=== PATIENT | male | born 1985 | race American Indian/Alaskan Native ===

== ENCOUNTER 2020-12-30 00:22 | Emergency (ER) | payer SELFPAY ==
[2020-12-30] MEDS ORDERED: levETIRAcetam 1000 MG/NS 0.75% 1,000 MG/100 ML BAG IV ONE (00:32)
[2020-12-30] MEDS ORDERED: SODIUM CHLORIDE 0.9% 1000 ML 1,000 ML IV ONE (00:32)
--- NOTE | 2020-12-30 00:35 | Emergency Department Report ---
ED Seizure HPI - General Chief Complaint: Seizure Stated Complaint: SEIZURE Time Seen by Provider: 12/30/20 00:22 Source: patient, EMS Mode of arrival: Stretcher Limitations: No Limitations - History of Present Illness Initial Comments: Patient is a 35-year-old male that presents emergency room with complaints of seizure activity. Patient states that he has history of seizures and is noncompliant with his medications. He states he ran out of medications about 2 weeks ago. Patient states that he is having some muscle stiffness and a headache. Patient states his headache is a 3 out of 10. Patient states his headache is better with rest and worse with movement. Patient denies fever and chills. Patient denies nausea vomiting. Patient denies cough. Patient denies chest pain. Patient denies shoulder injury. Patient denies recent travel. Patient denies recent international travel. Patient denies exposure to the novel coronavirus. Patient denies sick contacts. Patient denies fever and chills. Patient denies cough. Patient denies diarrhea. Patient denies coming in contact with anybody with symptoms of the novel coronavirus. MD Complaint: seizure -: Sudden Description of Episode: loss of consciousness, tonic-clonic movement -: second(s) Witnessed:: Yes Trauma: No Seizure History: known seizure disorder, history of non-compliance Place: home Possible Precipitating Event: stress, medication Associated Symptoms: confusion, malaise. denies: chest pain, cough, diaphoresis, fever/chills, loss of appetite, rash, shortness of breath, syncope, weakness, tongue injury, shoulder dislocation Treatments Prior to Arrival: none - Related Data Home Medications Medication Instructions Recorded Confirmed Last Taken Meloxicam 07/17/18 Unknown traMADol 07/17/18 Unknown Previous Rx's Medication Instructions Recorded Last Taken Type Aspirin EC [Ecotrin] 325 mg PO QDAY #30 tablet 07/20/18 Unknown Rx AtorvaSTATin [Lipitor] 40 mg PO DAILY #30 tablet 07/20/18 Unknown Rx levETIRAcetam [Keppra] 500 mg PO BID #60 tablet 07/20/18 Unknown Rx levETIRAcetam [Keppra TAB] 500 mg PO BID 15 Days #30 tablet 12/30/20 Unknown Rx methOCARBAMOL [Robaxin TAB] 500 mg PO BID PRN #15 12/30/20 Unknown Rx Allergies Allergy/AdvReac Type Severity Reaction Status Date / Time No Known Allergies Allergy Unverified 07/17/18 02:50 ED Review of Systems ROS: Stated complaint: SEIZURE Other details as noted in HPI Constitutional: denies: chills, fever Eyes: denies: eye pain, eye discharge, vision change ENT: denies: ear pain, throat pain Respiratory: denies: cough, shortness of breath, wheezing Cardiovascular: denies: chest pain, palpitations Endocrine: no symptoms reported Gastrointestinal: denies: abdominal pain, nausea, diarrhea Genitourinary: denies: urgency, dysuria Musculoskeletal: denies: back pain, joint swelling, arthralgia Skin: denies: rash, lesions Neurological: as per HPI, headache. denies: weakness, paresthesias Psychiatric: denies: anxiety, depression, auditory hallucinations, visual nela lucinations, homicidal thoughts, suicidal thoughts Hematological/Lymphatic: denies: easy bleeding, easy bruising ED Past Medical Hx - Past Medical History Previous Medical History?: Yes Hx Congestive Heart Failure: No Hx Diabetes: No Hx Seizures: Yes Hx Asthma: No Hx COPD: No - Surgical History Past Surgical History?: No - Family History Family history: no significant - Social History Smoking Status: Current Every Day Smoker Substance Use Type: None - Medications Home Medications: Home Medications Medication Instructions Recorded Confirmed Last Taken Type Meloxicam 07/17/18 Unknown History traMADol 07/17/18 Unknown History Aspirin EC [Ecotrin] 325 mg PO QDAY #30 tablet 07/20/18 12/30/20 Unknown Rx AtorvaSTATin [Lipitor] 40 mg PO DAILY #30 tablet 07/20/18 12/30/20 Unknown Rx levETIRAcetam [Keppra] 500 mg PO BID #60 tablet 07/20/18 12/30/20 Unknown Rx levETIRAcetam [Keppra TAB] 500 mg PO BID 15 Days #30 tablet 12/30/20 Unknown Rx methOCARBAMOL [Robaxin TAB] 500 mg PO BID PRN #15 12/30/20 Unknown Rx ED Physical Exam - General Limitations: No Limitations General appearance: alert, in no apparent distress - Head Head exam: Present: atraumatic, normocephalic - Eye Eye exam: Present: normal appearance, PERRL Pupils: Present: normal accommodation - ENT ENT exam: Present: mucous membranes dry - Neck Neck exam: Present: normal inspection - Respiratory Respiratory exam: Present: normal lung sounds bilaterally. Absent: respiratory distress - Cardiovascular Cardiovascular Exam: Present: regular rate, normal rhythm. Absent: systolic murmur, diastolic murmur, rubs, gallop - GI/Abdominal GI/Abdominal exam: Present: soft, normal bowel sounds - Rectal Rectal exam: Present: deferred - Extremities Exam Extremities exam: Present: normal inspection - Back Exam Back exam: Present: normal inspection - Neurological Exam Neurological exam: Present: alert, oriented X3 - Psychiatric Psychiatric exam: Present: normal affect, normal mood - Skin Skin exam: Present: warm, dry, intact, normal color. Absent: rash ED Course Vital Signs 12/30/20 00:29 Temperature 97.7 F Pulse Rate 66 Respiratory 13 Rate Blood Pressure 109/64 [right arm] O2 Sat by Pulse 95 Oximetry - Reevaluation(s) Reevaluation #1: No further seizure activity in the ER. Patient states he is feeling better. Patient will be given a refill of his medication. Patient is on Keppra. Patient given IV Keppra in the ER. I discussed all results and clinical findings with patient. I discussed plan of care with patient. Patient agrees with plan of care. Patient is stable for discharge. Patient will be discharged home. Patient given discharge instructions. Patient voiced understanding of discharge instructions. 12/30/20 02:53 ED Medical Decision Making - Lab Data Result diagrams: 12/30/20 00:55 12/30/20 00:55 - Radiology Data Radiology results: report reviewed CT HEAD WITHOUT CONTRAST INDICATION / CLINICAL INFORMATION: Seizure, dykes. TECHNIQUE: All CT scans at this location are performed using CT dose reduction for ALARA by means of automated exposure control. COMPARISON: CT scan report dated 07/17/2018. Images are not available for direct comparison. FINDINGS: HEMORRHAGE: None. EXTRA-AXIAL SPACES: Normal in size and morphology for the patient's age. VENTRICULAR SYSTEM: Normal in size and morphology for the patient's age. CEREBRAL PARENCHYMA: No significant abnormality. No acute territorial infarct. MIDLINE SHIFT / HERNIATION: None. CEREBELLUM / BRAINSTEM: No significant abnormality. ORBITS: Normal as visualized. SOFT TISSUES: No significant abnormality. SKULL: No significant abnormality. PARANASAL SINUSES / MASTOID AIR CELLS: Normal as visualized. ADDITIONAL FINDINGS: None. IMPRESSION: 1. No acute intracranial abnormality. - Medical Decision Making Patient is a 35-year-old male presents emergency room with complaints of seizure activity secondary to noncompliance. Patient also complained of a headache. Patient denies head injury. Patient had a head CT which was negative for acute finding. Patient had labs which were unremarkable. Patient chemistry and CBC were normal. Patient given IV fluids and Keppra in the ER. Patient was given a refill of his Keppra. Patient stable for discharge. Patient was discharged home. Patient given discharge instructions. No further seizure activity was noted. Patient's headache improved with fluids. - Differential Diagnosis Seizure, noncompliance, head injury, headache Critical care attestation.: If time is entered above; I have spent that time in minutes in the direct care of this critically ill patient, excluding procedure time. ED Disposition Clinical Impression: Seizure, Noncompliance Disposition: DC-01 TO HOME OR SELFCARE Is pt being admited?: No Does the pt Need Aspirin: No Condition: Stable Instructions: Epilepsy, [id number] Additional Instructions: Patient to follow-up with primary care in 2 to 3 days. Patient to follow-up with neurologist in 2 to 3 days. Patient to rest. Patient to increase water. Patient to avoid strenuous exercise or heavy lifting until cleared by neurologist and primary care. Patient to avoid driving. Patient to avoid high areas. Patient to take Tylenol or ibuprofen as needed for pain. Patient to ta ke meds as directed. Patient to return to the ER if condition worsens, changes or new symptoms arise. Prescriptions: levETIRAcetam [Keppra TAB] 500 mg PO BID 15 Days #30 tablet methOCARBAMOL [Robaxin TAB] 500 mg PO BID PRN #15 PRN Reason: muscle spasm Referrals: PRIMARY JANA, [Primary Care Provider] - 2-3 Days KUSUM HELLER MD [Staff Physician] - 2-3 Days Time of Disposition: 02:53
[2020-12-30 01:20] LABS: Basophils % (Auto) 0.5 % (0.0-1.8); Eosinophils % (Auto) 0.5 % (0.0-4.3); Hematocrit 40.7 % (35.5-45.6); Hemoglobin 13.6 gm/dl (11.8-15.2); Lymphocytes % (Auto) 37.7 % (13.4-35.0); Mean Corpuscular HGB Conc 33 % (32-34); Mean Corpuscular Volume 93 fl (84-94); Monocytes # (Auto) 0.5 K/mm3 (0.0-0.8); Platelet Count 295 K/mm3 (140-440); Red Blood Count 4.38 M/mm3 (3.65-5.03); Red Cell Distribution Width 14.2 % (13.2-15.2)
[2020-12-30 01:39] LABS: Alanine Aminotransferase 12 units/L (7-56); Albumin 4.1 g/dL (3.9-5); BUN/Creatinine Ratio 8; Blood Urea Nitrogen 10 mg/dL (9-20); Hemolysis Index 3
--- NOTE | 2020-12-30 02:04 | Cat Scan Report ---
CT HEAD WITHOUT CONTRAST INDICATION / CLINICAL INFORMATION: Seizure, dykes. TECHNIQUE: All CT scans at this location are performed using CT dose reduction for ALARA by means of automated exposure control. COMPARISON: CT scan report dated 07/17/2018. Images are not available for direct comparison. FINDINGS: HEMORRHAGE: None. EXTRA-AXIAL SPACES: Normal in size and morphology for the patient's age. VENTRICULAR SYSTEM: Normal in size and morphology for the patient's age. CEREBRAL PARENCHYMA: No significant abnormality. No acute territorial infarct. MIDLINE SHIFT / HERNIATION: None. CEREBELLUM / BRAINSTEM: No significant abnormality. ORBITS: Normal as visualized. SOFT TISSUES: No significant abnormality. SKULL: No significant abnormality. PARANASAL SINUSES / MASTOID AIR CELLS: Normal as visualized. ADDITIONAL FINDINGS: None. IMPRESSION: 1. No acute intracranial abnormality. Signer Name: Paul Mariee MD Signed: 12/30/2020 2:00 AM Workstation Name: [id number]
[2020-12-30 03:11] VITALS: BP 100/54
[2020-12-30] MEDS ORDERED: KETOROLAC 30 MG/1 ML INJ IV ONE (03:13)
[2021-01-01] MEDS ORDERED: LIDOCAINE (1%) 10 MG/1 ML VIAL 20 ML MDV ONE (15:42)
== END 2020-12-30 03:37 | disposition home or self-care (01) ==
LOC: ED 00:22
DX: G40.909 Epilepsy, unspecified, not intractable, without status epilepticus (principal); F17.200 Nicotine dependence, unspecified, uncomplicated; Z79.899 Other long term (current) drug therapy
CPT/HCPCS: 36415; 70450; 80053; 85025; 96374; 96375; 99284; J1885; J1953; J7030

== ENCOUNTER 2021-01-20 01:00 | Emergency (ER) | payer SELFPAY ==
[2021-01-20] MEDS ORDERED: ASPIRIN 325 MG TAB PO ONE (03:48)
--- NOTE | 2021-01-20 03:51 | Event Note ---
ED Screening Note Date of service: 01/20/21 Time: 03:49 ED Screening Note: Patient is a 35-year-old -[place] male with a history of seizures, chronic low back pain with sciatica, GERD and previous TIA who presents to the ED with complaint of acute onset persistent severe left-sided chest pain for the last 2 days worse in the last 12 hours. Patient states that he has not been able to sleep because of worsening left-sided chest pain. Patient also complains of low back pain that radiates to the left leg. Patient denies dizziness, syncope, headache, change in vision, nausea and vomiting, abdominal pain, fever, chills, palpitations, diaphoresis, traumatic injury or fall, heavy lifting, neck pain or cough. This initial assessment/diagnostic orders/clinical plan/treatment(s) is/are subject to change based on patients health status, clinical progression and re- assessment by fellow clinical providers in the ED. Further treatment and workup at subsequent clinical providers discretion. Patient/guardian urged not to elope from the ED as their condition may be serious if not clinically assessed and managed. Initial orders include: CBC, CMP, troponin, EKG, chest x-ray, aspirin
--- NOTE | 2021-01-20 04:29 | XRay Report ---
CHEST 1 VIEW 01/20/2021 3:17 AM INDICATION / CLINICAL INFORMATION: Chest pain. COMPARISON: None available. FINDINGS: SUPPORT DEVICES: None. HEART / MEDIASTINUM: The heart size and pulmonary vasculature are normal. The aorta is normal in pavel bert. LUNGS / PLEURA: No significant pulmonary or pleural abnormality. No pneumothorax. ADDITIONAL FINDINGS: No significant additional findings. IMPRESSION: No acute findings. Signer Name: Placido Morgan MD Signed: 01/20/2021 4:25 AM Workstation Name: [id number]
[2021-01-20 04:43] LABS: Basophils % (Auto) 0.3 % (0.0-1.8); Eosinophils # (Auto) 0.1 K/mm3 (0.0-0.4); Eosinophils % (Auto) 0.8 % (0.0-4.3); Hemoglobin 14.1 gm/dl (11.8-15.2); Lymphocytes # (Auto) 2.9 K/mm3 (1.2-5.4); Mean Corpuscular HGB Conc 34 % (32-34); Mean Corpuscular Volume 94 fl (84-94); Monocytes # (Auto) 0.6 K/mm3 (0.0-0.8); Monocytes % (Auto) 7.1 % (0.0-7.3); Platelet Count 316 K/mm3 (140-440); Red Blood Count 4.49 M/mm3 (3.65-5.03); Red Cell Distribution Width 14.3 % (13.2-15.2)
[2021-01-20 04:59] LABS: Alanine Aminotransferase 15 units/L (7-56); Albumin 4.1 g/dL (3.9-5); BUN/Creatinine Ratio 11; Blood Urea Nitrogen 12 mg/dL (9-20); Calcium 8.9 mg/dL (8.4-10.2); Hemolysis Index 4
[2021-01-20] MEDS ORDERED: KETOROLAC 60 MG/2 ML INJ IM ONE (07:42)
--- NOTE | 2021-01-20 07:46 | Emergency Department Report ---
ED General Adult HPI - General Chief complaint: Weakness Stated complaint: LEFT SIDED WEAKNESS; SORE THROAT Time Seen by Provider: 01/20/21 07:26 Source: patient Mode of arrival: Ambulatory Limitations: No Limitations - History of Present Illness Initial comments: Mr. Anderson is a 35 years old male with history of seizure, chronic back pain and sciatica. Patient presented to the ER with different complaint. Patient stated that he is having back pain that radiated down to his leg. He also stated that he has neck pain. Patient also complaining of generalized weakness and feeling sleepy all the time. Patient denied any recent injury. Patient denied any recent history of seizure. Patient is taking Keppra. - Related Data Home Medications Medication Instructions Recorded Confirmed Last Taken Meloxicam 07/17/18 Unknown traMADol 07/17/18 Unknown Previous Rx's Medication Instructions Recorded Last Taken Type Aspirin EC [Ecotrin] 325 mg PO QDAY #30 tablet 07/20/18 Unknown Rx AtorvaSTATin [Lipitor] 40 mg PO DAILY #30 tablet 07/20/18 Unknown Rx levETIRAcetam [Keppra] 500 mg PO BID #60 tablet 07/20/18 Unknown Rx levETIRAcetam [Keppra TAB] 500 mg PO BID 15 Days #30 tablet 12/30/20 Unknown Rx methOCARBAMOL [Robaxin TAB] 500 mg PO BID PRN #15 12/30/20 Unknown Rx Allergies Allergy/AdvReac Type Severity Reaction Status Date / Time No Known Allergies Allergy Unverified 07/17/18 02:50 ED Review of Systems ROS: Stated complaint: LEFT SIDED WEAKNESS; SORE THROAT Other details as noted in HPI Comment: All other systems reviewed and negative Constitutional: denies: chills, fever Respiratory: denies: cough, shortness of breath, SOB with exertion Cardiovascular: chest pain. denies: palpitations, dyspnea on exertion Gastrointestinal: denies: abdominal pain, nausea Musculoskeletal: back pain, arthralgia, myalgia Neurological: weakness. denies: headache, numbness, paresthesias, confusion, abnormal gait ED Past Medical Hx - Past Medical History Previous Medical History?: Yes Hx Congestive Heart Failure: No Hx Diabetes: No Hx Seizures: Yes Hx Asthma: No Hx COPD: No - Surgical History Past Surgical History?: No - Social History Smoking Status: Current Every Day Smoker Substance Use Type: Alcohol - Medications Home Medications: Home Medications Medication Instructions Recorded Confirmed Last Taken Type Meloxicam 07/17/18 Unknown History traMADol 07/17/18 Unknown History Aspirin EC [Ecotrin] 325 mg PO QDAY #30 tablet 07/20/18 12/30/20 Unknown Rx AtorvaSTATin [Lipitor] 40 mg PO DAILY #30 tablet 07/20/18 12/30/20 Unknown Rx levETIRAcetam [Keppra] 500 mg PO BID #60 tablet 07/20/18 12/30/20 Unknown Rx levETIRAcetam [Keppra TAB] 500 mg PO BID 15 Days #30 tablet 12/30/20 Unknown Rx methOCARBAMOL [Robaxin TAB] 500 mg PO BID PRN #15 12/30/20 Unknown Rx ED Physical Exam - General Limitations: No Limitations General appearance: alert, in no apparent distress - Head Head exam: Present: atraumatic, normocephalic, normal inspection - Eye Eye exam: Present: normal appearance, PERRL - ENT ENT exam: Present: normal exam, normal orophraynx, mucous membranes moist - Neck Neck exam: Present: normal inspection, full ROM. Absent: tenderness, meningismus - Respiratory Respiratory exam: Present: normal lung sounds bilaterally - Cardiovascular Cardiovascular Exam: Present: regular rate, normal rhythm, normal heart sounds - GI/Abdominal GI/Abdominal exam: Present: soft, normal bowel sounds. Absent: distended, tenderness, guarding, rebound, rigid, organomegaly, mass, bruit, pulsatile mass, hernia - Extremities Exam Extremities exam: Present: normal inspection, full ROM, normal capillary refill. Absent: tenderness - Back Exam Back exam: Present: normal inspection, full ROM. Absent: tenderness, CVA tenderness (R), CVA tenderness (L) - Neurological Exam Neurological exam: Present: alert, oriented X3, CN II-XII intact - Psychiatric Psychiatric exam: Present: normal mood - Skin Skin exam: Present: warm, intact, normal color ED Course Vital Signs 01/20/21 01/20/21 01/20/21 02:01 07:33 07:47 Temperature 98.8 F Pulse Rate 75 54 L Respiratory 16 16 16 Rate Blood Pressure 107/76 123/79 [Left] O2 Sat by Pulse 97 99 Oximetry ED Medical Decision Making - Lab Data Result diagrams: 01/20/21 04:11 01/20/21 04:11 - Radiology Data Radiology results: report reviewed - Medical Decision Making Mr. Anderson is a 35 years old male with history of seizure, chronic back pain and sciatica. Patient presented to the ER with different complaint. Patient stated that he is having back pain that radiated down to his leg. He also stated that he has neck pain. Patient also complaining of generalized weakness and feeling sleepy all the time. Patient denied any recent injury. Patient denied any recent history of seizure. Patient is taking Keppra. Labs reviewed and is unremarkable except for UTI. Chest x-ray is negative for acute finding. Patient received Toradol 60 mg IM for pain and stated that it helped a lot. Patient generalized weakness and sleepiness is most likely from his Keppra side effect however patient strongly advised to follow-up with his primary care physician for further management. Patient given prescription for ciprofloxacin. Patient advised to return to the ER if he develop any new symptoms. Critical care attestation.: If time is entered above; I have spent that time in minutes in the direct care o f this critically ill patient, excluding procedure time. ED Disposition Clinical Impression: Generalized weakness, UTI (urinary tract infection) Disposition: - TO HOME OR SELFCARE Is pt being admited?: No Condition: Stable Instructions: Urinary Tract Infection, Adult, [id number], Weakness Referrals: PRIMARY CARE,MD [Primary Care Provider] - 3-5 Days
[2021-01-20 08:31] LABS: Bilirubin,Urine NEG (Negative); Blood,Urine NEG (Negative); Color,Urine Yellow (Yellow); Mucus,Urine FEW /HPF; Protein,Urine <15 mg/dL mg/dL (Negative); Urobilinogen,Urine < 2.0 mg/dL (<2.0)
[2021-01-20 10:07] VITALS: BP 101/74
--- NOTE | 2021-01-21 10:39 | Electrocardiograph Report ---
[facility] Test Date: 2021-01-20 Test Time: 03:51:14 Pat Name: LUZ MARIA ALMEIDA Department: Room: Gender: M Office Mail Clerk: RAY : 1985 Requested By: JEAN PATRICIA Order Number: [id number] Reading MD: Renzo Finn Measurements Intervals [place] Rate: 57 P: 82 LA: 165 QRS: 80 QRSD: 82 T: 73 QT: 451 QTc: 441 Interpretive Statements Sinus bradycardia Probable left atrial enlargement Nonspecific T abnrm, anterolateral leads ST elev, probable normal early repol pattern No previous ECG available for comparison Electronically Signed On 01-21-2021 10:39:27 EDT by Renzo Finn
== END 2021-01-20 10:08 | disposition home or self-care (01) ==
LOC: ED 01:00
DX: N39.0 Urinary tract infection, site not specified (principal); R53.1 Weakness; G40.909 Epilepsy, unspecified, not intractable, without status epilepticus; F17.200 Nicotine dependence, unspecified, uncomplicated; Z79.82 Long term (current) use of aspirin; Z79.899 Other long term (current) drug therapy
CPT/HCPCS: 36415; 71045; 80053; 81001; 84484; 85025; 87086; 93005; 96372; 99284; J1885

== ENCOUNTER 2021-06-07 17:15 | Emergency (ER) | payer SELFPAY ==
--- NOTE | 2021-06-07 17:19 | Emergency Department Report ---
ED General Adult HPI - General Stated complaint: HEADACHE Time Seen by Provider: 06/07/21 17:16 - History of Present Illness Initial comments: Chief complaint: I just want to get checked out. HPI: This is a 35-year-old male history of seizure TIA who presents with generalized malaise. He states that he goes to different hospitals in order to get checked out because there he has a history of stroke in the family. He admitted to drinking alcohol and smoked marijuana prior to arrival. He denies any pain. He denies suicidal homicidal ideation. -: Gradual, days(s) (Several days) Consistency: constant Improves with: none Worsens with: none Associated Symptoms: other (Generalized malaise) - Related Data Home Medications Medication Instructions Recorded Confirmed Last Taken Meloxicam 07/17/18 Unknown traMADol 07/17/18 Unknown Previous Rx's Medication Instructions Recorded Last Taken Type Aspirin EC [Ecotrin] 325 mg PO QDAY #30 tablet 07/20/18 Unknown Rx AtorvaSTATin [Lipitor] 40 mg PO DAILY #30 tablet 07/20/18 Unknown Rx levETIRAcetam [Keppra] 500 mg PO BID #60 tablet 07/20/18 Unknown Rx levETIRAcetam [Keppra TAB] 500 mg PO BID 15 Days #30 tablet 12/30/20 Unknown Rx methOCARBAMOL [Robaxin TAB] 500 mg PO BID PRN #15 12/30/20 Unknown Rx Ciprofloxacin HCl 500 mg PO BID 10 Days #20 tablet 01/20/21 Unknown Rx Ketorolac [Toradol] 10 mg PO Q6H PRN #20 tablet 01/20/21 Unknown Rx Allergies Allergy/AdvReac Type Severity Reaction Status Date / Time No Known Allergies Allergy Unverified 07/17/18 02:50 ED Review of Systems ROS: Stated complaint: HEADACHE Other details as noted in HPI Comment: All other systems reviewed and negative Constitutional: malaise. denies: fever Respiratory: denies: cough, shortness of breath Cardiovascular: denies: chest pain Gastrointestinal: denies: abdominal pain, nausea, vomiting Neurological: denies: headache ED Past Medical Hx - Past Medical History Previous Medical History?: Yes Hx Congestive Heart Failure: No Hx Diabetes: No Hx Seizures: Yes Hx Asthma: No Hx COPD: No Additional medical history: TIA - Family History Family history: hypertension, vascular disease - Social History Smoking Status: Current Every Day Smoker Substance Use Type: Alcohol, Marijuana - Medications Home Medications: Home Medications Medication Instructions Recorded Confirmed Last Taken Type Meloxicam 07/17/18 Unknown History traMADol 07/17/18 Unknown History Aspirin EC [Ecotrin] 325 mg PO QDAY #30 tablet 07/20/18 12/30/20 Unknown Rx AtorvaSTATin [Lipitor] 40 mg PO DAILY #30 tablet 07/20/18 12/30/20 Unknown Rx levETIRAcetam [Keppra] 500 mg PO BID #60 tablet 07/20/18 12/30/20 Unknown Rx levETIRAcetam [Keppra TAB] 500 mg PO BID 15 Days #30 tablet 12/30/20 Unknown Rx methOCARBAMOL [Robaxin TAB] 500 mg PO BID PRN #15 12/30/20 Unknown Rx Ciprofloxacin HCl 500 mg PO BID 10 Days #20 tablet 01/20/21 Unknown Rx Ketorolac [Toradol] 10 mg PO Q6H PRN #20 tablet 01/20/21 Unknown Rx ED Physical Exam - General Limitations: No Limitations General appearance: alert, in no apparent distress - Head Head exam: Present: atraumatic, normocephalic - Eye Eye exam: Present: normal appearance - ENT ENT exam: Present: mucous membranes moist - Neck Neck exam: Present: normal inspection, full ROM - Respiratory Respiratory exam: Present: normal lung sounds bilaterally. Absent: respiratory distress, wheezes, rales, rhonchi - Cardiovascular Cardiovascular Exam: Present: regular rate, normal rhythm, normal heart sounds. Absent: systolic murmur, diastolic murmur, rubs, gallop - GI/Abdominal GI/Abdominal exam: Present: soft, normal bowel sounds - Rectal Rectal exam: Present: deferred - Extremities Exam Extremities exam: Present: normal inspection - Back Exam Back exam: Present: normal inspection - Neurological Exam Neurological exam: Present: alert, oriented X3 - Psychiatric Psychiatric exam: Present: normal affect, normal mood - Skin Skin exam: Present: warm, dry, intact, normal color. Absent: rash ED Medical Decision Making - Medical Decision Making Generalized malaise: Differential diagnosis includes intoxication alcohol marijuana, viral syndrome. Patient is awake alert steady normal gait. Stable vital signs. Discharged home. Critical care attestation.: If time is entered above; I have spent that time in minutes in the direct care of this critically ill patient, excluding procedure time. ED Disposition Clinical Impression: Seizure disorder, History of TIA (transient ischemic attack) Disposition: HOME / SELF CARE / HOMELESS Is pt being admited?: No Does the pt Need Aspirin: No Condition: Stable Referrals: REINIER MENDOZA MD [Staff Physician] - 3-5 Days
[2021-06-07 17:24] VITALS: BP 118/71
== END 2021-06-07 18:16 | disposition home or self-care (01) ==
LOC: ED 17:15
DX: G40.909 Epilepsy, unspecified, not intractable, without status epilepticus (principal); F17.200 Nicotine dependence, unspecified, uncomplicated; F12.90 Cannabis use, unspecified, uncomplicated; Z86.73 Personal history of transient ischemic attack (TIA), and cerebral infarction without residual deficits; Z79.899 Other long term (current) drug therapy; Z86.69 Personal history of other diseases of the nervous system and sense organs
CPT/HCPCS: 99281

== ENCOUNTER 2021-08-30 04:05 | Emergency (ER) | payer SELFPAY ==
[2021-08-30 05:12] VITALS: BP 109/54
--- NOTE | 2021-08-30 09:55 | Emergency Department Report ---
ED General Adult HPI - General Chief complaint: Extremity Problem,Nontraumatic Stated complaint: BACK PAIN & SWOLLEN FEET Time Seen by Provider: 08/30/21 09:15 Source: patient Mode of arrival: Ambulatory Limitations: No Limitations - History of Present Illness Initial comments: 36-year-old male with a past medical history of TIA, GERD and seizures presents to the ER today with complaints of lower back pain, and swelling about his ankles. Patient states that he has been having the low back pain since yesterday and he is also been having swelling about his ankle since yesterday. He denies any particular injury or trauma. He states that he does do lots of standing and walking at work. He reports increased pain with movement of his back. He denies any associate abdominal pain, UTI symptoms, bowel or bladder incontinence, chest pain or shortness of breath. MD Complaint: low back pain/ankle swelling -: days(s) Severity scale (0 -10): 9 - Related Data Home Medications Medication Instructions Recorded Confirmed Last Taken Meloxicam 07/17/18 Unknown traMADol 07/17/18 Unknown Previous Rx's Medication Instructions Recorded Last Taken Type Aspirin EC [Ecotrin] 325 mg PO QDAY #30 tablet 07/20/18 Unknown Rx AtorvaSTATin [Lipitor] 40 mg PO DAILY #30 tablet 07/20/18 Unknown Rx levETIRAcetam [Keppra] 500 mg PO BID #60 tablet 07/20/18 Unknown Rx levETIRAcetam [Keppra TAB] 500 mg PO BID 15 Days #30 tablet 12/30/20 Unknown Rx Ciprofloxacin HCl 500 mg PO BID 10 Days #20 tablet 01/20/21 Unknown Rx Ketorolac [Toradol] 10 mg PO Q6H PRN #20 tablet 01/20/21 Unknown Rx Naproxen [Naprosyn] 500 mg PO BID #20 tablet 08/30/21 Unknown Rx methOCARBAMOL [Robaxin TAB] 500 mg PO BID PRN #15 08/30/21 Unknown Rx Allergies Allergy/AdvReac Type Severity Reaction Status Date / Time No Known Allergies Allergy Verified 06/07/21 17:24 ED Review of Systems ROS: Stated complaint: BACK PAIN & SWOLLEN FEET Other details as noted in HPI Comment: All other systems reviewed and negative Constitutional: denies: chills, fever Eyes: denies: eye pain, eye discharge, vision change ENT: denies: ear pain, throat pain Respiratory: denies: cough, shortness of breath, wheezing Cardiovascular: denies: chest pain, palpitations Gastrointestinal: denies: abdominal pain, nausea, diarrhea, constipation, hematemesis, melena, hematochezia Genitourinary: denies: urgency, dysuria, frequency, hematuria, discharge, testicular pain, testicular mass Musculoskeletal: back pain, joint swelling Skin: denies: rash, lesions, change in color, change in hair/nails, pruritus Neurological: denies: headache, weakness, paresthesias, confusion ED Past Medical Hx - Past Medical History Hx Congestive Heart Failure: No Hx Diabetes: No Hx Seizures: Yes Hx Asthma: No Hx COPD: No Additional medical history: TIA - Social History Smoking Status: Current Every Day Smoker Substance Use Type: Marijuana - Medications Home Medications: Home Medications Medication Instructions Recorded Confirmed Last Taken Type Meloxicam 07/17/18 Unknown History traMADol 07/17/18 Unknown History Aspirin EC [Ecotrin] 325 mg PO QDAY #30 tablet 07/20/18 12/30/20 Unknown Rx AtorvaSTATin [Lipitor] 40 mg PO DAILY #30 tablet 07/20/18 12/30/20 Unknown Rx levETIRAcetam [Keppra] 500 mg PO BID #60 tablet 07/20/18 12/30/20 Unknown Rx levETIRAcetam [Keppra TAB] 500 mg PO BID 15 Days #30 tablet 12/30/20 Unknown Rx Ciprofloxacin HCl 500 mg PO BID 10 Days #20 tablet 01/20/21 Unknown Rx Ketorolac [Toradol] 10 mg PO Q6H PRN #20 tablet 01/20/21 Unknown Rx Naproxen [Naprosyn] 500 mg PO BID #20 tablet 08/30/21 Unknown Rx methOCARBAMOL [Robaxin TAB] 500 mg PO BID PRN #15 08/30/21 Unknown Rx ED Physical Exam - General Limitations: No Limitations General appearance: alert, other (Patient was found to be sleeping comfortably in the room. He was easily arousable. He is not in any acute distress.) - Eye Eye exam: Present: normal appearance, PERRL, EOMI Pupils: Present: normal accommodation - Neck Neck exam: Present: normal inspection, full ROM. Absent: meningismus - Respiratory Respiratory exam: Present: normal lung sounds bilaterally. Absent: respiratory distress, wheezes, rales, rhonchi - Cardiovascular Cardiovascular Exam: Present: regular rate, normal rhythm, normal heart sounds - GI/Abdominal GI/Abdominal exam: Present: soft. Absent: distended, tenderness, guarding - Extremities Exam Extremities exam: Present: normal inspection, full ROM. Absent: tenderness, normal capillary refill, pedal edema, joint swelling, calf tenderness - Back Exam Back exam: Present: normal inspection, full ROM, paraspinal tenderness (Mild, bilateral paraspinal muscle tenderness lumbar area). Absent: CVA tenderness (R), CVA tenderness (L), vertebral tenderness, rash noted - Neurological Exam Neurological exam: Present: alert, oriented X3, CN II-XII intact, normal gait - Psychiatric Psychiatric exam: Present: normal affect, normal mood - Skin Skin exam: Present: intact ED Course Vital Signs 08/30/21 08/30/21 05:11 10:14 Temperature 98.1 F Pulse Rate 68 67 Respiratory 20 Rate Blood Pressure 109/54 [Left] O2 Sat by Pulse 100 100 Oximetry ED Medical Decision Making - Medical Decision Making The patient presented with acute back pain and ankle swelling. The patient is resting comfortably and , is alert, talkative, interactive and in no distress. The patient is neurologically intact and is ambulatory in the ED. He has no fever, no bowel or bladder incontinence, no saddle anesthesia, chest pain or shortness of breath and is otherwise alert and well-appearing. His history, and physical examination does not suggest the presence of acute spinal epidural abscess, acute epidural bleed, cauda equina syndrome, abdominal/thoracic aortic aneurysm, aortic dissection, DVT, septic joint or other acute process requiring further testing, treatment or consultation in the emergency department. The vital signs have been stable. The patient condition is stable and appropriate for discharge. The patient will pursue further outpatient evaluation with the primary care physician or other designated or consulting physician as indicated in the discharge instructions. Critical care attestation.: If time is entered above; I have spent that time in minutes in the direct care of this critically ill patient, excluding procedure time. ED Disposition Clinical Impression: Ankle swelling, Low back pain Disposition: HOME / SELF CARE / HOMELESS Is pt being admited?: No Does the pt Need Aspirin: No Condition: Stable Instructions: Acute Back Pain, Adult, Back Exercises, [id number], Peripheral Edema Additional Instructions: Recommend that he elevate your leg as often as possible. Take the muscle relaxers and the naproxen as prescribed to help with any pain. I do recommend that you follow-up with your primary care doctor either today or next week. Return to the ER if your symptoms changes or worsens in any way. Prescriptions: Naproxen [Naprosyn] 500 mg PO BID #20 tablet methOCARBAMOL [Robaxin TAB] 500 mg PO BID PRN #15 PRN Reason: muscle spasm Referrals: PRIMARY CARE, [Primary Care Provider] - 3-5 Days Forms: Work/School Release Form(ED) Time of Disposition: 09:58
== END 2021-08-30 10:15 | disposition home or self-care (01) ==
LOC: ED 04:05
DX: M54.50 Low back pain, unspecified (principal); M25.473 Effusion, unspecified ankle
CPT/HCPCS: 99282